=== PATIENT | female | born 1990 | race Caucasian/White ===

== ENCOUNTER 2018-11-06 13:42 | Emergency (ER) | payer MEDICAID ==
[~2018-11-06] VITALS: Ht 172.7 cm; Wt 92.3 kg
[2018-11-06 13:50] VITALS: TEMP 98
[2018-11-06 14:20] LABS: COLLECTION METHOD CLEAN CATCH
[2018-11-06 14:26] LABS: PH 6 (5-8); SQUAMOUS EPITHELIAL 0-2 /hpf; URINE APPEARANCE Clear; URINE BACTERIA Rare /hpf; URINE BILIRUBIN Negative (NEGATIVE); URINE BLOOD Negative (NEGATIVE); URINE COLOR Yellow; URINE GLUCOSE Negative (NEGATIVE); URINE KETONE Negative (NEGATIVE); URINE LEUKOCYTE ESTERASE Negative (NEGATIVE); URINE NITRATE Negative (NEGATIVE); URINE PROTEIN(semi-quant) Negative (NEGATIVE); URINE RBC 0-2 /hpf; URINE UROBILINOGEN Negative (NEGATIVE)
--- NOTE | 2018-11-06 14:51 | NUR ---
1426- EFM and TOCO on and tracing. FHR baseline 135. Accelerations noted with no decels, moderate variability noted. Due date 01/30/19/ Pt denies VB, LOF. +FM.
[2018-11-06] MEDS ORDERED: NORCO 325 MG-7.1 TAB PO (15:07)
[2018-11-06] MEDS ORDERED: LIDODERM 5% PATC1 EA TP (15:07)
[2018-11-06 15:27] VITALS: BP 108/78; PULSE 95
== END 2018-11-06 15:31 | disposition home or self-care (01) ==
LOC: COL.ER 13:42
PROVIDERS: Physician Assistant
DX: M54.5 Low back pain (principal); Z98.890 Other specified postprocedural states

== ENCOUNTER 2019-01-19 09:30 | Outpatient (CLI) | payer MEDICAID ==
[~2019-01-19] VITALS: Ht 172.7 cm; Wt 99.1 kg
--- NOTE | 2019-01-19 09:25 | NUR ---
Pt arrives on unit ambulatory with spouse. G2L1 at 38.5 weeks gestation. Pt states feeling, "wet" at 0300 with mild cramping. Reports not feeling baby move like normal. Denies vaginal bleeding. EFM and toco applied. VSS. Amniotest negative. SVE per this RN 260/-2 with no fluid noted on glove. Admission assessment completed. Dr. Mera notified. Orders for discharge with reactive FHR strip. 1001-Reactive FHR strip obtained. Pt taken off monitors. Discharge instructions given. Leaves unit ambulatory. No questions or concerns.
[~2019-01-19 09:30] MED LIST: IRON18 MG1; LIDODERM 5% PATC1 EA TP; NORCO 325 MG-7.1 TAB PO; PRENATAL; ZANTAC 300300 MG PO
[2019-01-19 10:01] VITALS: BP 118/72; PULSE 94; TEMP 97.7
== END 2019-01-19 10:10 | disposition home or self-care (01) ==
LOC: LDRO 09:30 → LDR 10:07 → LDRO 10:10
DX: O26.893 Other specified pregnancy related conditions, third trimester (principal); R25.2 Cramp and spasm; Z3A.39 39 weeks gestation of pregnancy
CPT/HCPCS: OP

== ENCOUNTER 2019-01-26 05:42 | Inpatient (IN) | payer OTHER, MEDICAID ==
[~2019-01-26] VITALS: Ht 172.7 cm; Wt 99.1 kg
[2019-01-26] VITALS (19 sets, daily range): BP systolic 94–129; BP diastolic 54–87; PULSE 53–96; TEMP 97.2–97.9
--- NOTE | 2019-01-26 05:48 | NUR ---
Ambulatory to unit for scheduled repeat C/S accompanied by spouse.
[2019-01-26 06:39] LABS: BASO % 0.2 % (0.0-2.0); EOS # 0.2 (0.0-0.7); EOS % 1.6 % (0-4.0); GRAN # 7.2 (1.4-6.5); GRAN % 69.4 % (42.2-75.2); HEMATOCRIT 38.9 % (37.0-47.0); LYMPH # 2.3 (1.2-3.4); LYMPH % 22.3 % (20.0-51.0); MEAN CELL VOLUME 90 fl (80.0-100.0); MEAN CORPUSCULAR HEMOGLOBIN 30 pg (27.0-31.0); MEAN CORPUSCULAR HGB CONC 33 g/dl (33.0-37.0); MEAN PLATELET VOLUME 9.4 fl (7.4-10.4); MONO # 0.6 (0.1-0.6); MONO % 5.7 % (1.7-9.3); PLATELET COUNT 189 K/mm3 (130-400); RED BLOOD COUNT 4.32 M/mm3 (4.10-5.30); REDCELL DISTRIBUTION WIDTH-CV 17.3 % (11.5-14.5)
[2019-01-26] MEDS ORDERED: MOTRIN 800800 MG/TAB PO (07:11)
[2019-01-26] MEDS ORDERED: PERCOCET 325 MG1 TA2 PO (07:11)
--- NOTE | 2019-01-26 07:20 | NUR ---
heart monitor on patient while sitting for spinal. heart rate 150, hard to get baby on monitor with sitting. Dr. Arshad states can take off when lying down.
--- NOTE | 2019-01-26 08:10 | NUR ---
To pacu via bed with anesthesia, this nurse and spouse. Alert, nibp on. Denies any pain or discomfort at this time.
--- NOTE | 2019-01-26 08:45 | NUR ---
Rests in bed, alert. Baby brought in by nursery nurse. Holds baby lovingly. Spouse at bedside.
--- NOTE | 2019-01-26 09:00 | NUR ---
To room 213 via bed with two r.n. and baby. Nibp on, scds on. Denies any needs at this time.
--- NOTE | 2019-01-26 09:45 | NUR ---
Rests in bed, alert. States having pain in the lower stomach area. 0955 Percocet 3/325 mg one given as ordered and per order.
--- NOTE | 2019-01-26 10:45 | NUR ---
Rests in bed, alert. States still hurting lower stomach area. 1057 Percocet one 5/325 mg p.o. given per request and as ordered. Abdominal binder on, ice pack to lower abdominal area.
--- NOTE | 2019-01-26 12:30 | NUR ---
Rests in bed, alert. Request pain medication. Morphine 5 mg iv given as ordered and per request.
--- NOTE | 2019-01-26 15:00 | NUR ---
Ambulates to the bathroom. Catina care explained. Ambulates back to bed. Tolerates well.
--- NOTE | 2019-01-26 16:30 | NUR ---
1645 Pecocet 5/325 mg two given per request and as ordered.
[2019-01-27 01:00] VITALS: BP 107/67; PULSE 65
[2019-01-27 09:20] VITALS: BP 95/75; PULSE 67; TEMP 98
--- NOTE | 2019-01-27 10:08 | NUR ---
Initial visit attempt; Patient indisposed, Entertainment Musician left card of congratulations for the of their son and information regarding the availability of spiritual care at [facility].
[2019-01-27 13:18] VITALS: BP 118/75; PULSE 60; TEMP 97.3
[2019-01-27 16:25] VITALS: BP 116/75; PULSE 70; TEMP 97.9
[2019-01-27 19:00] VITALS: BP 114/72; PULSE 70; TEMP 98.2
--- NOTE | 2019-01-28 06:00 | NUR ---
Ambulating in the hallway. Denies any needs at this time.
[2019-01-28 08:15] VITALS: BP 122/67; PULSE 70; TEMP 98
--- NOTE | 2019-01-28 10:00 | NUR ---
Rests in chair, baby. 1015 Discharge instructions given, verbalizes understanding.
== END 2019-01-28 10:45 | disposition home or self-care (01) | DRG 787 ==
LOC: OB 05:42 → LDR 06:40 → OB 01-28 10:45
PROVIDERS: ADMIT Obstetrics & Gynecology
PROC: 10D00Z1 Extraction of Products of Conception, Low, Open Approach (ICD-10-PCS; principal; 2019-01-26)
DX: O34.211 Maternal care for low transverse scar from previous cesarean delivery (principal); O99.354 Diseases of the nervous system complicating childbirth; G71.3 Mitochondrial myopathy, not elsewhere classified; O99.62 Diseases of the digestive system complicating childbirth; O99.02 Anemia complicating childbirth; O99.344 Other mental disorders complicating childbirth; F41.9 Anxiety disorder, unspecified; F32.9 Major depressive disorder, single episode, unspecified; O36.63X0 Maternal care for excessive fetal growth, third trimester, not applicable or unspecified; Z3A.39 39 weeks gestation of pregnancy; Z37.0 Single live birth; Z86.14 Personal history of Methicillin resistant Staphylococcus aureus infection
CPT/HCPCS: J1885; J2270; J2370; J2405; J2590; J7120